=== PATIENT | male | born 2000 | race Caucasian/White ===

== ENCOUNTER → 2020-04-24 08:10 | Outpatient (BNVA) | payer OTHER, SELFPAY | PROVIDERS: Visit Provider Physician Assistant Medical | DX: S93.492A Sprain of other ligament of left ankle, initial encounter (principal); W24.0XXA Contact with lifting devices, not elsewhere classified, initial encounter | CPT/HCPCS: 99202 ==

== ENCOUNTER → 2020-04-27 11:15 | Outpatient (BNVA) | payer OTHER, SELFPAY | PROVIDERS: PCP Pediatrics; Visit Provider Physician Assistant Medical | DX: S93.492A Sprain of other ligament of left ankle, initial encounter (principal); W24.0XXA Contact with lifting devices, not elsewhere classified, initial encounter | CPT/HCPCS: 99213 ==

== ENCOUNTER → 2020-05-08 09:45 | Outpatient (BNVA) | payer OTHER, SELFPAY | PROVIDERS: PCP Pediatrics; Visit Provider Physician Assistant Medical | DX: S93.492A Sprain of other ligament of left ankle, initial encounter (principal); W24.0XXA Contact with lifting devices, not elsewhere classified, initial encounter | CPT/HCPCS: 99213 ==

== ENCOUNTER → 2020-05-22 10:00 | Outpatient (BNVA) | payer OTHER, SELFPAY | PROVIDERS: PCP Pediatrics; Visit Provider Physician Assistant | DX: S97.02XD Crushing injury of left ankle, subsequent encounter (principal); S93.402D Sprain of unspecified ligament of left ankle, subsequent encounter; X58.XXXD Exposure to other specified factors, subsequent encounter | CPT/HCPCS: 99213 ==

== ENCOUNTER 2020-05-31 10:00 | Outpatient (RCR) | payer OTHER, SELFPAY ==
--- NOTE | 2020-05-03 16:04 | MHC.PT.EP ---
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 PMH is significant for multiple prior lateral ankle sprains and epilepsy with last seizure on 04/17/20. Pt presents to PT today with decreased (L) ankle strength, general ankle hypermobility, tenderness along (L) lateral cuboid, mild lateral foot swelling, and impaired balance. Pt sxs are consistent with lateral ankle sprain causing pain with prolonged standing activities. Pt will benefit from skilled PT 2x/week for 4 weeks to improve ankle stability, strength, and balance to aid in work related activities, leisure activity, ambulation, and ADLs. 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 Treatment Plan: Modalities to reduce pain, spasms and effusion. Manual therapy to restore motion and function. Therapeutic exercise to improve strength and flexibility. Neuromuscular re-education for posture and balance. Therapeutic activities to return to functional activities of daily living. Electronically signed by: Mary Saenz PT Please sign and return to therapist. Thank you for your referral.
--- NOTE | 2020-05-31 10:58 | MHC.PT.DC ---
[facility] [place] Office [place] Office [place] Office [address] Jenni Hansen [address] [phone] F: [phone] F: [phone] F: [phone] F: [phone] Physical Therapy Discharge Report Diagnosis: (L) ankle crush/lateral sprain Date of Surgery: DOI 04/17/2020 Date of Evaluation: 05/03/20 Date of Discharge: 05/31/20 Treatments to Date: 8 Cancellations to Date: 0 No Shows to Date: 0 Discharge Status: Achieved Goals Improved Function Independent with HEP Discharge Summary: Pt reports feeling better overall and is able to ambulate/ perform stairs/ and exercise without pain. He still will get some pain if he performs end range ankle inversion, otherwise painfree. He is I with HEP and is appropriate for d/c at this time secondary to meeting all goals, decreased pain,and improved functional mobility. LEFS 66/80. Electronically signed by: Mary Saenz PT Please sign and return to therapist. Thank you for your referral.
== END 2020-05-31 10:59 | disposition home or self-care (01) ==
LOC: HO.PT 10:00
PROVIDERS: PCP Pediatrics; Visit Provider Physician Assistant Medical
DX: S93.402D Sprain of unspecified ligament of left ankle, subsequent encounter (principal)
CPT/HCPCS: 97110; 97112; 97161; 97530

== ENCOUNTER → 2020-05-31 11:11 | Outpatient (BNVA) | payer OTHER, SELFPAY | PROVIDERS: PCP Pediatrics; Visit Provider Physician Assistant | DX: S93.402D Sprain of unspecified ligament of left ankle, subsequent encounter (principal); W23.0XXD Caught, crushed, jammed, or pinched between moving objects, subsequent encounter | CPT/HCPCS: 99213 ==